=== PATIENT | female | born 1990 | race Hispanic/Latino ===

== ENCOUNTER 2022-10-12 14:10 | Inpatient (IN) | payer MEDICAID, OTHER ==
[~2022-10-12] VITALS: Ht 160 cm; Wt 74.8 kg
[2022-10-12 15:24] LABS: HEMATOCRIT 33.9 % (36-48); MEAN CORPUSCULAR HGB CONC 34.5 g/dL (32.0-36.0); MEAN CORPUSCULAR VOLUME 84.1 fL (79-99); RED BLOOD CELL COUNT(AUTO) 4.03 MIL/uL (4.00-5.50); RED CELL DISTRIBUTION WIDTH 13.7 % (11.0-15.5); WHITE BLOOD COUNT (AUTO) 12.1 K/uL (4.8-10.8)
[2022-10-12] MEDS ORDERED: CEFAZOLIN SODIUM 2 GM VIAL IVPB PRN (15:30)
[2022-10-12 15:38] LABS: INR 0.93 (0.85-1.15); PROTHROMBIN TIME 9.6 SEC (9.6-11.6)
[2022-10-12 15:39] LABS: ALBUMIN 2.8 g/dL (3.5-5.0); BILIRUBIN,TOTAL 0.6 mg/dL (0.2-1.0); CREATININE 0.6 mg/dL (0.5-1.5); PARTIAL THROMBOPLASTIN TIME 23.2 SEC (26.3-35.5); TOTAL PROTEIN, SERUM 6.4 g/dL (6.0-8.3); URIC ACID 4.4 mg/dL (2.6-7.2)
[2022-10-12] MEDS ORDERED: METOCLOPRAMIDE 10 MG/2 ML VIAL IVP ONE (16:00)
[2022-10-12 16:17] LABS: POTASSIUM 3.4 mmol/L (3.5-5.1)
[2022-10-12] MEDS ORDERED: LACTATED RINGERS 1000ML 1,000 ML IV ONE (16:26)
[2022-10-12] MEDS ORDERED: CITRIC ACID/SODIUM CITRATE 30 ML UDCUP PO ONE (16:28)
[2022-10-12] MEDS ORDERED: MORPHINE PF 100MG/10ML AMP IV ONE (17:01)
[2022-10-12] MEDS ORDERED: FENTANYL CITRATE PF 50 MCG/1 ML 2ML VIAL ONE (17:01)
[2022-10-12] MEDS ORDERED: OXYTOCIN 10 UNIT/1ML 10ML VIAL ONE (17:02)
[2022-10-12] MEDS ORDERED: DEXAMETHASONE SOD PHOSPHATE 10MG/ML 1ML VIAL ONE (17:02)
[2022-10-12] MEDS ORDERED: ONDANSETRON 4MG INJ ONE (17:03)
[2022-10-12] MEDS ORDERED: CEFAZOLIN SODIUM 2 GM VIAL IVPB ONE (17:14)
[2022-10-12] MEDS ORDERED: 0.9%NACL 10ML VIAL IVP PRN (18:30)
[2022-10-12] MEDS ORDERED: OXYTOCIN-LR 30 UNITS/500ML 500 ML IV PRN (18:30)
[2022-10-12] MEDS ORDERED: MEPERIDINE-PF 75 MG/ML SYG IM PRN (18:30)
[2022-10-12] MEDS ORDERED: DEXTROSE 5 %-0.45 % NACL 1,000 ML IV PRN (18:30)
[2022-10-12] MEDS ORDERED: PROMETHAZINE HCL 25 MG/ML 1ML AMPULE IM PRN (18:30)
[2022-10-12] MEDS ORDERED: DiphenhydrAMINE HCL 50 MG/ML VIAL IV ONE (21:00)
[2022-10-12] MEDS ORDERED: ONDANSETRON 4MG INJ IVP PRN (21:00)
[2022-10-12] MEDS ORDERED: NALOXONE HCL 0.4 MG/1 ML ML IVP PRN (21:00)
[2022-10-12 21:03] VITALS: BP 135/85; PULSE 65; RESP 20
[2022-10-12] MEDS: CALDOLOR 800MG+NS 250ML 250 ML IV SCH (21:41)
[2022-10-12 23:18] VITALS: BP 133/74; PULSE 65; RESP 18
[2022-10-13] MEDS ORDERED: BISACODYL 10 MG SUPP.RECT RC PRN (01:00)
[2022-10-13] MEDS ORDERED: ACETAMINOPHEN WITH CODEINE 1 TAB TAB PO PRN (01:00)
[2022-10-13] MEDS ORDERED: ACETAMINOPHEN 500 MG TABLET PO PRN (01:00)
[2022-10-13] MEDS ORDERED: IBUPROFEN 600 MG TABLET PO PRN (01:00)
[2022-10-13] MEDS ORDERED: LANOLIN 30GM OINTMENT TP PRN (01:00)
[2022-10-13] MEDS ORDERED: SIMETHICONE 80 MG TAB.CHEW PO PRN (01:00)
[2022-10-13] MEDS ORDERED: PREN-154 PO (01:24)
[2022-10-13 03:29] VITALS: BP_SYST 131; BP_SYST 95; BP_DIAS 56; BP_DIAS 79; PULSE 75; PULSE 83; RESP 18
[2022-10-13] MEDS: CEFAZOLIN SODIUM 2 GM VIAL IVPB SCH (05:02)
[2022-10-13] MEDS: CALDOLOR 800MG+NS 250ML 250 ML IV SCH ×2 (05:03→12:22)
[2022-10-13 06:52] VITALS: BP 108/77; PULSE 78; RESP 18
[2022-10-13 07:12] LABS: MEAN CORPUSCULAR HEMOGLOBIN 29.2 pg (27.0-33.0); MEAN CORPUSCULAR VOLUME 85.9 fL (79-99); RED BLOOD CELL COUNT(AUTO) 2.91 MIL/uL (4.00-5.50); RED CELL DISTRIBUTION WIDTH 13.7 % (11.0-15.5); WHITE BLOOD COUNT (AUTO) 13.3 K/uL (4.8-10.8)
[2022-10-13] MEDS: DOCUSATE SODIUM 100 MG CAP PO SCH ×2 (07:59→21:17)
[2022-10-13] MEDS ORDERED: ACET-2079 PO (10:58)
[2022-10-13] MEDS: HYDROCODONE/ACETAMINOPHEN 5/325 MG TAB PO PRN ×2 (11:27→23:52)
[2022-10-13 11:40] VITALS: BP 95/57; PULSE 71; RESP 18
[2022-10-13 16:00] VITALS: BP 105/66; PULSE 73; RESP 20
[2022-10-13 19:22] VITALS: BP 115/73; PULSE 97; RESP 18
[2022-10-13 23:09] VITALS: BP 105/64; PULSE 87; RESP 18
[2022-10-14 03:21] VITALS: BP 102/60; PULSE 86; RESP 18
[2022-10-14 07:40] VITALS: BP 117/73; PULSE 86; RESP 18
[2022-10-14] MEDS: DOCUSATE SODIUM 100 MG CAP PO SCH (08:18)
[2022-10-14] MEDS: CEFAZOLIN SODIUM 2 GM VIAL IVPB SCH (10:30)
[2022-10-14 11:25] VITALS: BP 132/77; PULSE 91; RESP 20
[2022-10-14 13:24] LABS: RAPID PLASMA REAGIN NONREACTIVE (NONREACTIVE)
== END 2022-10-14 12:55 | disposition home or self-care (01) | DRG 788 ==
LOC: LDH 14:10 → WSH 21:00
PROVIDERS: ADMIT Obstetrics & Gynecology; ATTEND Obstetrics & Gynecology
PROC: 10D00Z1 Extraction of Products of Conception, Low, Open Approach (ICD-10-PCS; principal; 2022-10-12 17:09)
DX: O34.211 Maternal care for low transverse scar from previous cesarean delivery (principal); Z37.0 Single live birth; Z3A.38 38 weeks gestation of pregnancy
CPT/HCPCS: 36415; 59510; 80053; 84550; 85027; 85384; 85610; 85730; 86592; 86701; 86850; 86900; 86901; 87340; 87390; A4344; G0378; J1100; J1200; J1741; J2175; J2274; J2405; J2550; J2590; J2765; J3010; J7120; A4248; J0690; L0625